=== PATIENT | female | born 2000 | race American Indian/Alaskan Native ===

== ENCOUNTER 2019-09-25 10:29 | Emergency (ER) | payer SELFPAY ==
--- NOTE | 2019-09-25 11:52 | Emergency Department Report ---
Blank Doc - Documentation Documentation: 18-year-old female that presents with pelvic pain, dysuria, and vaginal discha rge. This initial assessment/diagnostic orders/clinical plan/treatment(s) is/are subject to change based on patient's health status, clinical progression and re- assessment by fellow clinical providers in the ED. Further treatment and workup at subsequent clinical providers discretion. Patient/guardians urged not to elope from the ED as their condition may be serious if not clinically assessed a nd managed. Initial orders include: 1- Patient sent to [facility] for further evaluation and treatment 2- UA 3- pelvic exam needed
[2019-09-25] MEDS ORDERED: ACETAMINOPHEN 325 MG TAB PO ONE (12:03)
[2019-09-25] MEDS ORDERED: ACETAMINOPHEN 325 MG TAB ONE (12:05)
[2019-09-25 12:54] LABS: Bilirubin,Urine NEG (Negative); Blood,Urine NEG (Negative); Color,Urine Yellow (Yellow); Mucus,Urine FEW /HPF; Protein,Urine <15 mg/dL mg/dL (Negative); Urobilinogen,Urine < 2.0 mg/dL (<2.0)
[2019-09-25 12:58] LABS: HCG Qualitative,Urine Negative (Negative)
[2019-09-25 13:33] LABS: Basophils % (Auto) 0.3 % (0.0-1.8); Hematocrit 37.8 % (30.3-42.9); Hemoglobin 12.5 gm/dl (10.1-14.3); Lymphocytes # (Auto) 0.8 K/mm3 (1.2-5.4); Lymphocytes % (Auto) 5.9 % (13.4-35.0); Mean Corpuscular HGB Conc 33 % (30-34); Mean Corpuscular Volume 87 fl (79-97); Monocytes # (Auto) 1.4 K/mm3 (0.0-0.8); Monocytes % (Auto) 10.4 % (0.0-7.3); Platelet Count 318 K/mm3 (140-440); Red Blood Count 4.34 M/mm3 (3.65-5.03); Red Cell Distribution Width 13.8 % (13.2-15.2)
[2019-09-25 13:51] LABS: BUN/Creatinine Ratio 17; Blood Urea Nitrogen 12 mg/dL (7-17); Calcium 9.3 mg/dL (8.4-10.2); Hemolysis Index 13
--- NOTE | 2019-09-25 14:24 | Emergency Department Report ---
ED Female HPI - General Chief complaint: Abdominal Pain Stated complaint: ABD PAIN/DISCHARGE Time Seen by Provider: 09/25/19 11:51 Source: patient Mode of arrival: Ambulatory Limitations: No Limitations - History of Present Illness Initial comments: This is a 18-year-old -[place] female who presents to the emergency room with vaginal discharge, pelvic pain, and vaginal pain for 2 days. Patient states she did have unprotected intercourse last week. She also reports urinary frequency. Patient also reports a fever and cough for several days. She reports taking one pill of cold and flu medication. Her last menstrual period was 08/07/2019, 0. She denies dysuria, back pain, cough, chest pain, shortness of breath, nausea or vomiting, or diarrhea. MD Complaint: vaginal discharge, pelvic pain, possible STD Onset/Timin -: days(s) Location: suprapubic Radiation: non-radiating Severity: moderate Severity scale (0 -10): 6 Quality: aching Consistency: constant Improves with: none Worsens with: none Are you Now?: No Last Menstrual Period: 08/07/19 EDC: 05/13/20 Associated Symptoms: vaginal discharge, abdominal pain, fever/chills. denies: vaginal bleeding, nausea/vomiting, headaches, loss of appetite, dysuria, hematuria, rash, seizure, shortness of breath, syncope, weakness - Related Data Sexually active: Yes : 0 Para: 0 A: 0 Previous Rx's Medication Instructions Recorded Last Taken Type DOXYCYCLINE Hyclate [Vibramycin 100 mg PO Q12HR #14 capsule 09/25/19 Unknown Rx CAP] Allergies Allergy/AdvReac Type Severity Reaction Status Date / Time No Known Allergies Allergy Unverified 09/25/19 12:02 ED Review of Systems ROS: Stated complaint: ABD PAIN/DISCHARGE Other details as noted in HPI Constitutional: denies: chills, fever Respiratory: denies: cough, shortness of breath, wheezing Cardiovascular: denies: chest pain, palpitations Gastrointestinal: abdominal pain. denies: nausea, diarrhea Genitourinary: frequency. denies: urgency, dysuria, discharge Musculoskeletal: denies: back pain, joint swelling, arthralgia Skin: denies: rash, lesions Neurological: denies: headache, weakness, paresthesias Psychiatric: denies: anxiety, depression ED Past Medical Hx - Past Medical History Previous Medical History?: No - Surgical History Past Surgical History?: No - Social History Smoking Status: Never Smoker Substance Use Type: None - Medications Home Medications: Home Medications Medication Instructions Recorded Confirmed Last Taken Type DOXYCYCLINE Hyclate [Vibramycin 100 mg PO Q12HR #14 capsule 09/25/19 Unknown Rx CAP] ED Physical Exam - General Limitations: No Limitations General appearance: alert, in no apparent distress, obese (morbidly) - ENT ENT exam: Present: normal orophraynx, mucous membranes moist, TM's normal bilaterally, normal external ear exam, other (turbinates congested with clear d ischarge) - Respiratory Respiratory exam: Present: normal lung sounds bilaterally. Absent: respiratory distress - Cardiovascular Cardiovascular Exam: Present: regular rate, normal rhythm. Absent: systolic murmur, diastolic murmur, rubs, gallop - GI/Abdominal GI/Abdominal exam: Present: soft, tenderness (suprapubic tenderness), normal bowel sounds. Absent: distended, guarding, rebound, rigid, organomegaly - External exam: Present: normal external exam Speculum exam: Present: erythema, vaginal discharge (malodorous frothy white). Absent: cervical discharge, vaginal bleeding, foreign body, tissue, laceration Bi-manual exam: Present: normal bi-manual exam. Absent: cervical motion t endernes, adnexal tenderness, adnexal mass, uterine enlargement, uterine tenderness - Extremities Exam Extremities exam: Present: normal inspection - Back Exam Back exam: Present: normal inspection. Absent: CVA tenderness (R), CVA tenderness (L) - Neurological Exam Neurological exam: Present: alert, oriented X3, normal gait - Psychiatric Psychiatric exam: Present: normal affect, normal mood - Skin Skin exam: Present: warm, dry, intact, normal color. Absent: rash ED Course Vital Signs 09/25/19 09/25/19 09/25/19 12:00 15:06 15:25 Temperature 101.6 F H 99.3 F 97 F L Pulse Rate 109 H 102 H 97 H Respiratory 18 18 16 Rate Blood Pressure 147/77 Blood Pressure 133/85 126/81 [Right] O2 Sat by Pulse 98 100 99 Oximetry ED Medical Decision Making - Lab Data Result diagrams: 09/25/19 12:51 09/25/19 12:51 Lab Results 09/25/19 09/25/19 09/25/19 Range/Units 12:19 12:51 12:51 WBC 13.1 H (4.5-11.0) K/mm3 RBC 4.34 (3.65-5.03) M/mm3 Hgb 12.5 (10.1-14.3) gm/dl Hct 37.8 (30.3-42.9) % MCV 87 (79-97) fl MCH 29 (28-32) pg MCHC 33 (30-34) % RDW 13.8 (13.2-15.2) % Plt Count 318 (140-440) K/mm3 Lymph % (Auto) 5.9 L (13.4-35.0) % [place] % (Auto) 10.4 H (0.0-7.3) % Eos % (Auto) 0.0 (0.0-4.3) % Baso % (Auto) 0.3 (0.0-1.8) % Lymph # 0.8 L (1.2-5.4) K/mm3 [place] # 1.4 H (0.0-0.8) K/mm3 Eos # 0.0 (0.0-0.4) K/mm3 Baso # 0.0 (0.0-0.1) K/mm3 Seg Neutrophils % 83.4 H (40.0-70.0) % Seg Neutrophils # 10.9 H (1.8-7.7) K/mm3 Sodium 136 L (137-145) mmol/L Potassium 4.0 (3.6-5.0) mmol/L Chloride 100.2 (98-107) mmol/L Carbon Dioxide 23 (22-30) mmol/L Anion Gap 17 mmol/L BUN 12 (7-17) mg/dL Creatinine 0.7 (0.7-1.2) mg/dL Estimated GFR > 60 ml/min BUN/Creatinine Ratio 17 % Glucose 170 H (65-100) mg/dL Calcium 9.3 (8.4-10.2) mg/dL Urine Color Yellow (Yellow) Urine Turbidity Clear (Clear) Urine pH 8.0 H (5.0-7.0) Ur Specific [place] 1.020 (1.003-1.030) Urine Protein <15 mg/dl (Negative) mg/dL Urine Glucose (UA) Neg (Negative) mg/dL Urine Ketones Neg (Negative) mg/dL Urine Blood Neg (Negative) Urine Nitrite Neg (Negative) Urine Bilirubin Neg (Negative) Urine Urobilinogen < 2.0 (<2.0) mg/dL Ur Leukocyte Esterase Tr (Negative) Urine WBC (Auto) 6.0 (0.0-6.0) /HPF Urine RBC (Auto) 10.0 (0.0-6.0) /HPF U Epithel Cells (Auto) 2.0 (0-13.0) /HPF Urine Mucus Few /HPF Urine HCG, Qual Negative (Negative) - Medical Decision Making Patient was examined by me. Patient is nontoxic appearing and stable. Temperature elevated at arrival. Given analgesics while in the ER. Improved temperature reevaluation. Labs obtained and pelvic exam. Leukocytosis findings on labs, urinalysis unremarkable, negative test, wet prep negative for trichomoniasis, yeast, and clue cells. Gonorrhea and chlamydia is pending. Patient will be treated for Bronchitis. Start Flonase, Tessalon Perles, and doxycycline. Patient informed of results. Instructed to take Tylenol or ibuprofen for fever control. Follow up with PCP or return to the ER with worsening symptoms. Patient discharged home in stable condition. Critical care attestation.: If time is entered above; I have spent that time in minutes in the direct care of this critically ill patient, excluding procedure time. ED Disposition Clinical Impression: Vaginal discharge, Cough, Fever and chills, Bronchitis Disposition: TO HOME OR SELFCARE Is pt being admited?: No Condition: Stable Instructions: Abdominal Pain (ED), Acute Bronchitis (ED) Additional Instructions: Increase fluid intake and rest. Wash hands frequently. Continue taking Tylenol or ibuprofen to control fever. F/U with Primary Care Provider. Return to ER if fever, SOB, or difficulty breathing after 48 hours of supportive care. Prescriptions: DOXYCYCLINE Hyclate [Vibramycin CAP] 100 mg PO Q12HR #14 capsule Referrals: [facility] [Outside] - 3-5 Days [facility] [Provider Group] - 3-5 Days [facility] [Provider Group] - 3-5 Days Forms: Work/School Release Form(ED) Time of Disposition: 16:03
[2019-09-25 16:35] VITALS: BP 124/78
== END 2019-09-25 16:34 | disposition home or self-care (01) ==
LOC: ED 10:29
DX: N89.8 Other specified noninflammatory disorders of vagina (principal); J40 Bronchitis, not specified as acute or chronic; Z79.899 Other long term (current) drug therapy
CPT/HCPCS: 36415; 80048; 81001; 81025; 85025; 87210; 87591

== ENCOUNTER 2019-09-29 12:55 | Emergency (ER) | payer SELFPAY ==
[2019-09-29 13:01] VITALS: BP 132/86
--- NOTE | 2019-09-29 13:06 | Emergency Department Report ---
Chief Complaint: Urogenital-Female Stated Complaint: VAGINAL DISCOMFORT/SORES Time Seen by Provider: 09/29/19 13:01 - HPI History of Present Illness: vaginal lesions that began three days ago having green/yellow discharge had a new sexual partner hx of STD:chlamydia no N/V, fever, no abd pain pt was evaluated in the ED on 09/25 wet prep was negative, UA without UTI, G/C were both negative, urine preg negative PMHx bronchitis no allergies to meds LNMP: oct, has irregular cycles on exam: lung sounds are clear bilaterally, no w/r/r, heart sounds are normal initial vitals with elevated HR which improved upon repeat pt is presenting with a non medical emergency at this time pt needs a full STD panel pt referred to [facility] - Exam Vital Signs: Vital Signs 09/29/19 13:00 Temperature 98.6 F Pulse Rate 113 H Respiratory 18 Rate Blood Pressure 132/86 [Left] O2 Sat by Pulse 96 Oximetry MSE screening note: Focused history and physical exam performed. Due to findings the following was ordered: ED Disposition for MSE Clinical Impression: Concern about STD in female without diagnosis Disposition: Z- MED SCREENING EXAM-LEFT Is pt being admited?: No Does the pt Need Aspirin: No Condition: Stable Additional Instructions: please follow up with the health department or clinic for a full STD panel. return to the emergency room for any new or worsening symptoms . Referrals: [facility] [Outside] - 2-3 Days [facility] [Outside] - 2-3 Days DANNY MARS MD [Staff Physician] - 2-3 Days Time of Disposition: 13:06 Print Language: BRUNEIAN
== END 2019-09-29 13:28 | disposition left against medical advice (07) ==
LOC: ED 12:55
DX: N89.8 Other specified noninflammatory disorders of vagina (principal)
CPT/HCPCS: 99281